=== PATIENT | male | born 1995 | race Caucasian/White ===

== ENCOUNTER 2017-08-19 03:05 | Emergency (ER) | payer OTHER ==
[~2017-08-19] VITALS: Ht 190.5 cm; Wt 99.8 kg
[2017-08-19] MEDS ORDERED: MONT10TA24 (03:24)
[2017-08-19] MEDS ORDERED: TETANUS,DIPTH,PERTUSS P/F (BOOSTRIX) 0.5 ML VIAL IM ONE (03:45)
[2017-08-19] MEDS ORDERED: LIDOCAINE/EPI 2% 1:100,00 (XYLOCAINE) 20 ML VIAL ONE (03:57)
[2017-08-19] MEDS ORDERED: RX-TRIMETH/SULFA. 160-800 MG (BACTRIM DS) TAB PPK#2 PO STA (04:21)
[2017-08-19] MEDS ORDERED: SULF1TAB35 PO (04:25)
--- NOTE | 2017-08-19 04:25 | ED Lower Extremity ---
General Chief Complaint: Laceration Stated Complaint: RT FOOT INJURY Nursing Triage Note: right ankle laceration Nursing Sepsis Screen: No Definite Risk Source: patient History of Present Illness Date Seen by Provider: August 19, 2017 Time Seen by Provider: 03:30 Initial Comments PT ARRIVES VIA POV FROM HOME C/O LACERATION TO RIGHT ANKLE PT STATES HE KICKED IN A GLASS DOOR AROUND 0245 TODAY C/O SLIGHT PAIN AND NUMBNESS TO MEDIAL ASPECT OF RIGHT FOOT AND PAIN/LACERATION TO MEDIAL ASPECT OF RIGHT ANKLE NO MOTOR DEFICITS NO PRIOR INJURY TO THIS FOOT / ANKLE DENIES ANY OTHER INJURY PT HAS HAD AT LEAST 12 BEERS TONIGHT. RIGHT HAND CURRENTLY IN A SPLINT, PT STATES HE BROKE HIS 5TH FINGER LAST WEEK AFTER FALLING DOWN STAIRS NO SURGERY [facility] [place] Allergies and Home Medications Allergies Coded Allergies: cephalexin (Verified Allergy, Unknown, 08/19/17) Home Medications Sulfamethoxazole/Trimethoprim 1 Each Tablet, 1 EACH PO BID Prescribed by: ADELAIDA AVINA on 08/19/17 1057 Patient Home Medication List Home Medication List Reviewed: Yes Constitutional: no symptoms reported Musculoskeletal: see HPI Skin: see HPI Psychiatric/Neurological: See HPI Past Tthoxek-Lyzcbi-Khkbyr Hx Patient Social History Alcohol Use: Occasionally Uses Recreational Drug Use: No Smoking Status: Never a Smoker 2nd Hand Smoke Exposure: Yes Recent Foreign Travel: No Contact w/Someone Who Travel: No Recent Infectious Disease Expo: No Recent Hopitalizations: No Immunizations Up To Date Tetanus Booster (TDap): Less than 5yrs PED Vaccines UTD: Yes Seasonal Allergies Seasonal Allergies: Yes Past Medical History Surgeries: Yes Orthopedic Respiratory: No Cardiac: No Neurological: No Genitourinary: No Gastrointestinal: No Musculoskeletal: No Endocrine: No HEENT: No Cancer: No Psychosocial: No Integumentary: No Blood Disorders: No Physical Exam Vital Signs Vital Signs - First Documented 08/19/17 03:24 Temp 98.2 Pulse 113 Resp 18 B/P (MAP) 152/87 (108) Pulse Ox 97 O2 Delivery Room Air Capillary Refill : Less Than 3 Seconds General Appearance: WD/WN, no apparent distress Legs: right leg normal inspection Knees: right knee normal inspection Ankles: right ankle other (MEDIAL ASPECT OF LEFT ANKLE, JUST ABOVE MALLEOLUS, FULL THICKNESS HORIZONTAL LACERATION OF 4 CM. DOES HAVE A SUPERFICIAL LACERATION TO TENDON/FASCIA OF APPROXIMATELY 1 CM. NO ACTIVE BLEEDING. MOTOR/ SENSORY/VASCULAR INTACT. NO BONY TENDERNESS) Feet: right foot normal inspection Neurologic/Tendon: normal sensation, normal motor functions, normal tendon functions Neurologic/Psychiatric: outside sales II-XII nml as tested, no motor/sensory deficits, alert, normal mood/affect, oriented x 3 Skin: normal color, warm/dry, other ( ABOVE) Procedures/Interventions Other Wound Location RIGHT ANKLE Wound Length (cm): 4 Wound's Depth, Shape: linear, sub Q, tendon Wound Explored: clean Betadine Prep?: No (BETASEPT) Anesthesia: Lidocaine w/ Epi (2%) Staple Repair: Stapler 35W (#8) Suture: Vicryl Suture Size: 4-0 Layer Closure?: 2 Number Deep Layer Sutures: 3 Sterile Dressing Applied?: Yes Progress CLEANSED WITH BETASEPT AND SALINE SMALL SHEILA IN TENDON/FASCIA CLOSED WITH #3 SUTURES OF 4-O VICRYL SKIN CLOSED WITH #8 JELANI PT TOLERATED WELL Progress/Results/Core Measures Results/Orders My Orders Orders - ADELAIDA AVINA DO Dipht,Pertuss(Acell),Tet Adult (Boostrix (08/19/17 03:45) Foot, Right, 3 View (08/19/17 03:32) Ankle, Right, 3 Views (08/19/17 03:32) Lidocaine/Epi 2% 1:100,000 (Xylocaine/Ep (08/19/17 03:57) Rx-Trimeth/Sulfameth Ds Tab (Rx-Bactrim/ (08/19/17 04:21) Wound Dressing-Ed (08/19/17 04:21) Medications Given in ED Current Medications Medications Dose Ordered Sig/Ashley Route Start Time Stop Time Status Last Admin Dose Admin Diphtheria/ Tetanus/Acell Pertussis 0.5 ml ONCE ONCE IM 08/19/17 03:45 08/19/17 03:46 DC 08/19/17 04:10 0.5 ML Lidocaine/ Epinephrine 20 ml STK-MED ONCE .ROUTE 08/19/17 03:57 08/19/17 04:02 DC 08/19/17 04:10 20 ML Vital Signs/I&O 08/19/17 03:24 Temp 98.2 Pulse 113 Resp 18 B/P (MAP) 152/87 (108) Pulse Ox 97 O2 Delivery Room Air Blood Pressure Mean: 108 Diagnostic Imaging Comments XRAYS RIGHT FOOT/ANKLE--NO ACUTE PROCESS, ACCESSORY OSSICLES IN POSTERIOR ANKLE- -PENDING RADIOLOGIST REVIEW Reviewed: Reviewed by Me Departure Impression Primary Impression: Laceration of right ankle with tendon involvement Additional Impressions: Contusion of right foot Fctzwstrxh-cswhonnga-ewehzqu (DPT) vaccination administered at current visit Disposition: 01 HOME, SELF-CARE Condition: Stable Departure-Patient Inst. Referrals: [facility] (PCP/Family) Primary Care Physician Patient Instructions: Laceration Repair With [place] ([place]), Tendon Laceration ( [place]), Diphtheria and Tetanus Toxoids, and Acellular Pertussis Vaccine Add. Discharge Instructions: LEAVE DRESSING IN PLACE FOR 24 HOURS, THEN YOU MAY CLEAN TWICE A DAY WITH ANTIBACTERIAL SOAP AND WATER. OTHERWISE KEEP CLEAN AND DRY JELANI OUT IN 14 DAYS TYLENOL AND MOTRIN NEEDED FOR PAIN FOLLOW UP WITH [facility] NEEDED All discharge instructions reviewed with patient and/or family. Voiced understanding. Scripts Sulfamethoxazole/Trimethoprim (Bactrim Ds Tablet) 1 Each Tablet 1 EACH PO BID, #20 TAB Prov: ADELAIDA AVINA DO 08/19/17 ADELAIDA AVINA DO August 19, 2017 04:25
[2017-08-19 04:33] VITALS: BP 148/90
--- NOTE | 2017-08-19 06:52 | Diagnostic Imaging Report ---
INDICATION: Laceration to right ankle. Pain in the foot. COMPARISON: Right ankle radiographs performed concurrently. TECHNIQUE: 3 nonweightbearing views of right foot. FINDINGS: No radiopaque foreign body. No acute fracture or traumatic malalignment. Chronic ossicles around the right ankle are better detailed on the ankle radiograph report. Chronic ossicles also present at the anterior process of the calcaneus. IMPRESSION: 1. No acute fracture. 2. Scattered chronic ossicles around the hindfoot and ankle. Dictated by: Dictated on workstation # [id number]
--- NOTE | 2017-08-19 06:57 | Diagnostic Imaging Report ---
INDICATION: Laceration to medial ankle. COMPARISON: None available. TECHNIQUE: 3 nonweightbearing views of the right ankle were obtained. FINDINGS: No radiopaque foreign body. No acute fracture is seen. Multiple chronic corticated ossicles are present around the ankle, located inferior to the lateral malleolus and posterior to the talus. There may be an osteochondral lesion of the lateral talar dome. No traumatic malalignment. IMPRESSION: 1. No radiopaque foreign body. 2. Possible osteochondral lesion of the lateral talar dome. Nonemergent CT or MRI of the ankle could be performed for further characterization. Dictated by: Dictated on workstation # [id number]
== END 2017-08-19 04:28 | disposition home or self-care (01) ==
LOC: ER 03:10
DX: S96.921A Laceration of unspecified muscle and tendon at ankle and foot level, right foot, initial encounter (principal); Z88.1 Allergy status to other antibiotic agents; Z77.22 Contact with and (suspected) exposure to environmental tobacco smoke (acute) (chronic); Z23 Encounter for immunization; W25.XXXA Contact with sharp glass, initial encounter
CPT/HCPCS: 12032; 73610; 73630; 90471; 90715